=== PATIENT | male | born 1970 | race Caucasian/White ===

== ENCOUNTER 2017-05-12 08:14 | Emergency (ER) | payer OTHER ==
[2017-05-12 08:37] VITALS: BP 143/93; PULSE 78; TEMP 98.4; BMI 32.8
[2017-05-12] MEDS ORDERED: SODIUM CHLORIDE 1,000 ML IV STA (08:48)
--- NOTE | 2017-05-12 09:00 | PDOC ---
History of Present Illness - General Chief Complaint: Pain, Acute Stated Complaint: ABD PAIN Time Seen by Provider: 05/12/17 08:21 History Source: Patient Exam Limitations: No Limitations - History of Present Illness Initial Comments: 05/12/17 08:53 47-year-old male with history of appendectomy presents to the emergency department with abdominal discomfort. Patient does suffer from a history of constipation but noted last 5 days that he's been feeling bloated and with intermittent abdominal discomfort. States that physical pressure-like pain but is not sharp. He is able to tolerate by mouth and eating comfortably. Denies fevers, chills, nausea, vomiting, diarrhea. States his stools have been progressively harder. Because of discomfort, came to the ED for further evaluation. Last bowel movement was today. Past History - Past Medical History Allergies/Adverse Reactions: Allergies Allergy/AdvReac Type Severity Reaction Status Date / Time No Known Allergies Allergy Verified 05/12/17 08:15 Home Medications: Ambulatory Orders Zolpidem Tartrate [Ambien -] 10 mg PO HS #5 tablet 03/21/14 Docusate Sodium [Colace -] 100 mg PO TID #21 capsule 05/12/17 Polyethylene Glycol 3350 [Miralax (For Bowel Prep) -] 17 gm PO DAILY #1 bottle 05/12/17 COPD: No Other medical history: DENIES - Surgical History Appendectomy: Yes - Suicide/Smoking/Psychosocial Hx Smoking Status: No Smoking History: Never smoked Number of Cigarettes Smoked Daily: 0 Hx Alcohol Use: No Drug/Substance Use Hx: No Substance Use Type: Alcohol Review of Systems - Review of Systems Able to Perform ROS?: Yes Comments:: 05/12/17 08:54 GENERAL/CONSTITUTIONAL: No fever, weakness. HEAD, EYES, EARS, NOSE AND THROAT: No change in vision. No ear pain or discharge. No sore throat. CARDIOVASCULAR: No chest pain or shortness of breath. RESPIRATORY: No cough, wheezing, or hemoptysis. GASTROINTESTINAL: +abdominal discomfort. +hard stools. No nausea, vomiting, diarrhea, or decreased PO intolerance. GENITOURINARY: No dysuria, frequency, or change in urination. MUSCULOSKELETAL: No joint or muscle swelling or pain. No neck or back pain. SKIN: No rash NEUROLOGIC: No headache, vertigo, loss of consciousness, or change in strength/ sensation. ENDOCRINE: No increased thirst. No abnormal weight change. HEMATOLOGIC/LYMPHATIC: No anemia, easy bleeding, or history of blood clots. ALLERGIC/IMMUNOLOGIC: No hives or skin allergy. *Physical Exam - Vital Signs Last Vital Signs Temp Pulse Resp BP Pulse Ox 98.4 F 78 18 143/93 100 05/12/17 08:14 05/12/17 08:14 05/12/17 08:14 05/12/17 08:14 05/12/17 08:14 - Physical Exam Comments: 05/12/17 08:56 GENERAL: Awake, alert, and fully oriented, in no acute distress. HEAD: No signs of trauma EYES: PERRLA, EOMI, sclera anicteric, conjunctiva clear ENT: Auricles normal inspection ABDOMEN: Soft, nontender, normoactive bowel sounds. No guarding, no rebound. No masses EXTREMITIES: Normal range of motion, no edema. No clubbing or cyanosis. No cords, erythema, or tenderness NEUROLOGICAL: Cranial nerves II through XII grossly intact. Normal speech, normal gait SKIN: Warm, Dry, normal turgor, no rashes or lesions noted. ED Treatment Course - LABORATORY CBC & Chemistry Diagram: 05/12/17 08:50 05/12/17 08:58 - RADIOLOGY Radiology Studies Ordered: Category Date Time Status ABDOMEN FLAT & UPRIGHT [RAD] Stat Radiology 05/12/17 08:48 Ordered Medical Decision Making - Medical Decision Making 05/12/17 08:57 Vital Signs Temp Pulse Resp BP Pulse Ox 98.4 F 78 18 143/93 100 05/12/17 08:14 05/12/17 08:14 05/12/17 08:14 05/12/17 08:14 05/12/17 08:14 I suspect the patient likely has constipation. However, we'll obtain blood work , urinalysis and abdominal x-ray. At this time, I have less suspicion for bowel obstruction. Reassess. 05/12/17 10:43 CBC, BMP 05/12/17 08:50 05/12/17 08:58 CMP Sodium 134 mmol/L (136-145) L 05/12/17 08:58 Potassium 4.4 mmol/L (3.5-5.1) 05/12/17 08:58 Chloride 102 mmol/L (98-107) 05/12/17 08:58 Carbon Dioxide 25 mmol/L (22-28) 05/12/17 08:58 Anion Gap 7 (8-16) L 05/12/17 08:58 BUN 20 mg/dl (7-18) H 05/12/17 08:58 Creatinine 1.0 mg/dl (0.6-1.3) 05/12/17 08:58 Creat Clearance w eGFR > 60 (>60) 05/12/17 08:58 Random Glucose 110 mg/dl (74-106) H 05/12/17 08:58 Calcium 9.8 mg/dl (8.4-10.2) 05/12/17 08:58 Magnesium 1.8 mg/dL (1.8-2.4) 05/12/17 08:58 Total Bilirubin 0.9 mg/dl (0.2-1.0) D 05/12/17 08:58 AST 41 U/L (10-42) D 05/12/17 08:58 ALT 66 U/L (10-40) H D 05/12/17 08:58 Alkaline Phosphatase 73 U/L (32-92) D 05/12/17 08:58 Total Protein 7.7 g/dl (6.4-8.3) 05/12/17 08:58 Albumin 4.2 g/dl (3.5-5.0) 05/12/17 08:58 Lipase 53 U/L (22-51) H 05/12/17 08:58 Urine Test Results Urine Color Yellow 05/12/17 09:14 Urine Appearance Clear 05/12/17 09:14 Urine pH 6.0 (4.5-8) D 05/12/17 09:14 Ur Specific [place] 1.025 (1.005-1.025) 05/12/17 09:14 Urine Protein Negative (NEGATIVE) 05/12/17 09:14 Urine Glucose (UA) Negative (NEGATIVE) 05/12/17 09:14 Urine Ketones Negative (NEGATIVE) 05/12/17 09:14 Urine Blood Negative (NEGATIVE) 05/12/17 09:14 Urine Nitrite Negative (NEGATIVE) 05/12/17 09:14 Urine Bilirubin Negative (NEGATIVE) 05/12/17 09:14 Ur Leukocyte Esterase Negative (NEGATIVE) 05/12/17 09:14 Abdominal radiograph demonstrates no acute findings. The patient does report feeling better after the medications. The patient is able to tolerate PO and go to the gym. 4 days ago, he took a dose of milk of magnesium and reported relief. I suspect that he may be having constipation. Will prescribe miralax and colace and advise patient to follow up with PMD I discussed the physical exam findings, ancillary test results and final diagnoses with the patient. I answered all of the patient's questions. The patient was satisfied with the care received and felt comfortable with the discharge plan and treatment plan. The patient will call their primary care physician within 24 hours to arrange follow-up and will return to the Emergency Department with any new, persistant or worsening symptoms. *DC/Admit/Observation/Transfer Diagnosis at time of Disposition: Abdominal pain Qualifiers: Abdominal location: unspecified location Qualified Code(s): R10.9 - Unspecified abdominal pain - Discharge Dispostion Disposition: HOME Condition at time of disposition: Stable Admit: No - Prescriptions Prescriptions: Docusate Sodium [Colace -] 100 mg PO TID #21 capsule Polyethylene Glycol 3350 [Miralax (For Bowel Prep) -] 17 gm PO DAILY #1 bottle - Referrals - Patient Instructions Printed Discharge Instructions: DI for Constipation, Increased Dietary Fiber May Improve Constipation Conditions With Pelvic Buzz Additional Instructions: Drink plenty of water. Take the colace and miralax as prescribed. Follow up with your primary care physician. - Post Discharge Activity
[2017-05-12 09:25] LABS: URINE APPEARANCE Clear; URINE BILIRUBIN Negative (NEGATIVE); URINE BLOOD Negative (NEGATIVE); URINE GLUCOSE (UA) Negative (NEGATIVE); URINE KETONE Negative (NEGATIVE); URINE LEUK ESTERASE Negative (NEGATIVE); URINE NITRITE Negative (NEGATIVE); URINE PROTEIN Negative (NEGATIVE); URINE UROBILINOGEN 0.2 (0.2-1.0)
[2017-05-12] MEDS ORDERED: MAG HYDROX/AL HYDROX/SIMETH 30 ML UNIT-DOSE CUP PO ONE (09:36)
[2017-05-12] MEDS ORDERED: FAMOTIDINE 20 MG/50 ML IVPB 20 MG/50 ML MG IVPB ONE ×2 (09:36→09:38)
[2017-05-12] MEDS ORDERED: POLYETHYLENE GLYCOL 3350 119 GM BTL PO ONE (09:37)
[2017-05-12] MEDS ORDERED: MAG HYDROX/AL HYDROX/SIMETH 30 ML UNIT-DOSE CUP ONE (09:38)
[2017-05-12 09:46] LABS: URINE COLOR YELLOW
[2017-05-12 09:53] LABS: BASOPHIL 0.6 % (0-2.0); EOSINOPHIL 1.9 % (0-4.5); MCH 28.1 pg (25.7-33.7); MCHC 33.2 g/dl (32.0-35.9); MEAN CELL VOLUME 84.7 fl (80-96); MEAN PLT VOLUME 9.8 fl (7.5-11.1); NEUTROPHILS 63.7 % (42.8-82.8); PLATELET COUNT 292 K/MM3 (134-434); WHITE BLOOD COUNT 7.6 K/mm3 (4.0-10.8)
[2017-05-12 10:11] LABS: ALBUMIN 4.2 g/dl (3.5-5.0); ALK PHOS 73 U/L (32-92); ANION GAP 7 (8-16); BILIRUBIN,TOTAL 0.9 mg/dl (0.2-1.0); CALCIUM 9.8 mg/dl (8.4-10.2); CO2 25 mmol/L (22-28); GLUCOSE,RANDOM 110 mg/dl (74-106); MAGNESIUM 1.8 mg/dL (1.8-2.4); SGOT/AST 41 U/L (10-42); SGPT/ALT 66 U/L (10-40); TOT PROT 7.7 g/dl (6.4-8.3)
== END 2017-05-12 10:49 | disposition home or self-care (01) ==
LOC: FER 08:14
PROC: 3E033GC Introduction of Other Therapeutic Substance into Peripheral Vein, Percutaneous Approach (ICD-10-PCS; principal; 2017-05-12)
DX: R10.9 Unspecified abdominal pain (principal); Z90.89 Acquired absence of other organs
CPT/HCPCS: 36415; 74020-TC; 80053; 81003; 83690; 83735; 85025; 99283-25

== ENCOUNTER 2017-08-16 13:30 | Emergency (ER) | payer SELFPAY ==
[2017-08-16 13:51] VITALS: BMI 34.4
[2017-08-16] MEDS ORDERED: KETOROLAC TROMETHAMINE 30 MG/1 ML VIAL IVPUSH ONE (14:31)
[2017-08-16] MEDS ORDERED: SODIUM CHLORIDE 1,000 ML IV STA (14:31)
[2017-08-16] MEDS ORDERED: KETOROLAC TROMETHAMINE 30 MG/1 ML VIAL ONE (14:36)
[2017-08-16 14:57] LABS: BASO % 1.1 % (0-2.0); EOS % 3.2 % (0-4.5); HEMATOCRIT 44.1 % (35.4-49); HEMOGLOBIN 15.4 GM/dl (11.7-16.9); LYMPH % 18.2 % (8-40); MCH 29.3 pg (25.7-33.7); MCHC 34.8 g/dl (32.0-35.9); MEAN CELL VOLUME 84.1 fl (80-96); MEAN PLT VOLUME 8.4 fl (7.5-11.1); MONO % 9.1 % (3.8-10.2); NEUT % 68.4 % (42.8-82.8); PLATELET COUNT 229 K/MM3 (134-434); RBC 5.25 M/mm3 (4.00-5.60); RDW 13.2 % (11.9-15.9); WHITE BLOOD COUNT 6.8 K/mm3 (4.0-10.8)
[2017-08-16 15:09] LABS: ALBUMIN 4.1 g/dl (3.5-5.0); ALK PHOS 78 U/L (32-92); ANION GAP 8 (8-16); BILIRUBIN,TOTAL 0.7 mg/dl (0.2-1.0); BLOOD UREA NITROGEN 14 mg/dl (7-18); CALCIUM 8.6 mg/dl (8.4-10.2); CHLORIDE 99 mmol/L (98-107); CO2 23 mmol/L (22-28); GLUCOSE,RANDOM 113 mg/dl (74-106); POTASSIUM 3.9 mmol/L (3.5-5.1); SGOT/AST 48 U/L (10-42); SGPT/ALT 84 U/L (10-40); SODIUM 130 mmol/L (136-145)
--- NOTE | 2017-08-16 15:21 | PDOC ---
History of Present Illness <Neida Wynn - Last Filed: 08/16/17 15:27> - General History Source: Patient Exam Limitations: No Limitations - History of Present Illness Initial Comments: 08/16/17 16:00 CHIEF COMPLAINT: Fever and cough for 2 days HISTORY OF PRESENT ILLNESS: Patient is a 47-year-old man with a history of prior appendectomy. He had been doing well until 3 days ago when he developed weakness, cough, and fever. He also has a sore throat. The cough is productive of white phlegm. He has an intermittent headache, but that is better today. Overall he is feeling severe aches and weakness today so he decided to come to the hospital. There is no nausea, vomiting or diarrhea. He continues to have fever and chills. REVIEW OF SYSTEMS: GENERAL/CONSTITUTIONAL: Positive fever and chills. Positive weakness. No weight change. HEAD, EYES, EARS, NOSE AND THROAT: No change in vision. No ear pain. Positive sore throat. No difficulty swallowing. CARDIOVASCULAR: Positive cough, no chest pain. No shortness of breath. RESPIRATORY: Positive cough, no wheezing or hemoptysis. Occasional white sputum. Mostly nonproductive. GASTROINTESTINAL: No nausea, vomiting, diarrhea or constipation. No rectal bleeding. GENITOURINARY: No dysuria, frequency, or change in urination. MUSCULOSKELETAL: As of diffuse joint and muscle aches and pains. SKIN AND BREASTS: No rash or easy bruising. NEUROLOGIC: Positive headache yesterday, now resolved. No vertigo or loss of consciousness. No focal numbness or weakness. PSYCHIATRIC: No depression or anxiety. ENDOCRINE: No increased thirst. No abnormal weight change. HEMATOLOGIC/LYMPHATIC: No anemia, easy bleeding, or history of blood clots. ALLERGIC/IMMUNOLOGIC: No hives or skin allergy. No latex allergy. <Elan Davis - Last Filed: 08/16/17 16:08> - General Chief Complaint: Cold Symptoms Stated Complaint: COUGH AND FEVER Time Seen by Provider: 08/16/17 14:19 Past History <Neida Wynn - Last Filed: 08/16/17 15:27> - Past Medical History COPD: No - Surgical History Appendectomy: Yes - Suicide/Smoking/Psychosocial Hx Smoking Status: No Smoking History: Never smoked Have you smoked in the past 12 months: No Number of Cigarettes Smoked Daily: 0 Information on smoking cessation initiated: No Hx Alcohol Use: No Drug/Substance Use Hx: No Substance Use Type: Alcohol <Elan Davis - Last Filed: 08/16/17 16:08> - Past Medical History Allergies/Adverse Reactions: Allergies Allergy/AdvReac Type Severity Reaction Status Date / Time No Known Allergies Allergy Verified 08/16/17 13:43 Home Medications: Ambulatory Orders Naproxen [Naprosyn -] 375 mg PO BID PRN #14 tablet 08/16/17 Oseltamivir Phosphate [Tamiflu] 75 mg PO BID 5 Days #10 capsule 08/16/17 *Physical Exam - Vital Signs Last Vital Signs Temp Pulse Resp BP Pulse Ox 102.8 F H 106 H 18 150/80 99 08/16/17 13:46 08/16/17 13:46 08/16/17 13:46 08/16/17 13:46 08/16/17 13:46 <Neida Wynn - Last Filed: 08/16/17 15:27> - Vital Signs Last Vital Signs Temp Pulse Resp BP Pulse Ox 102.8 F H 106 H 18 150/80 99 08/16/17 13:46 08/16/17 13:46 08/16/17 13:46 08/16/17 13:46 08/16/17 13:46 - Physical Exam Comments: 08/16/17 16:02 GENERAL: The patient is awake, alert, and fully oriented, in no acute distress. He has intermittent cough, nonproductive. HEAD: Normal with no signs of trauma. EYES: Pupils equal, round and reactive to light, extraocular movements intact, sclera anicteric, conjunctiva clear. ENT: He is normal. Nasal membranes are erythematous. Throat with slight erythema but no exudates. No trismus. Uvula normal. NECK: Normal range of motion, supple without lymphadenopathy, JVD, or masses. No meningismus. LUNGS: Breath sounds equal, clear to auscultation bilaterally. No wheezes, and no crackles. Clear throughout, anterior and posterior. HEART: Regular rate and rhythm, normal S1 and S2 without murmur, rub or gallop. ABDOMEN: Soft, nontender, normoactive bowel sounds. No guarding, no rebound. No masses. EXTREMITIES: Normal range of motion, no edema. No clubbing or cyanosis. No cords, erythema, or tenderness. NEUROLOGICAL: Cranial nerves II through XII grossly intact. Normal speech, normal gait. PSYCH: Normal mood, normal affect. SKIN: Warm, Dry, normal turgor, no rashes or lesions noted. <Elan Davis - Last Filed: 08/16/17 16:08> ED Treatment Course - LABORATORY CBC & Chemistry Diagram: 08/16/17 14:45 08/16/17 14:45 - ADDITIONAL ORDERS Additional order review: Laboratory Results 08/16/17 14:45 Sodium 130 L Potassium 3.9 Chloride 99 Carbon Dioxide 23 Anion Gap 8 BUN 14 D Creatinine 1.0 Creat Clearance w eGFR > 60 Random Glucose 113 H Calcium 8.6 Total Bilirubin 0.7 D AST 48 H ALT 84 H D Alkaline Phosphatase 78 Total Protein 8.0 Albumin 4.1 08/16/17 14:45 RBC 5.25 MCV 84.1 MCHC 34.8 RDW 13.2 MPV 8.4 D Neutrophils % 68.4 Lymphocytes % 18.2 D Monocytes % 9.1 Eosinophils % 3.2 Basophils % 1.1 - RADIOLOGY Radiograph Interpretation: 08/16/17 15:27 Chest X-ray Imaging reveals a weak inspiratory effort with clear lungs, normal mediastinum and sharp angles. The bones and soft tissues are intact. Impression: No acute pathology Reported by: Kristopher Horan MD 08/16/17 1501 - Medications Given in the ED: ED Medications Discontinued Medications Generic Name Dose Route Start Last Admin Trade Name Freq PRN Reason Stop Dose Admin Ketorolac Tromethamine 30 mg 08/16/17 14:31 08/16/17 14:47 Toradol Injection - IVPUSH 08/16/17 14:32 30 mg ONCE ONE Administration <Neida Wynn - Last Filed: 08/16/17 15:27> - LABORATORY CBC & Chemistry Diagram: 08/16/17 14:45 08/16/17 14:45 - RADIOLOGY Radiology Studies Ordered: Category Date Time Status CHEST PA & LAT [RAD] Stat Radiology 08/16/17 14:30 Ordered <Elan Davis - Last Filed: 08/16/17 16:08> Medical Decision Making - Medical Decision Making 08/16/17 16:03 Patient is a 47-year-old man who presents with flulike symptoms for 3 days. His examination is notable for frequent coughing, and inflammation of the nasopharynx and mild inflammation of the oropharynx. Lungs are clear. Chest x-ray shows no acute infiltrates. Laboratory studies reviewed: CBC is normal. Hemoglobin is normal. BUN and creatinine is normal. Transaminases are mildly elevated, but only mildly. Other LFTs are normal. After hydration and antipyretics, patient is feeling well. He will be started on Tamiflu given his BMI of 35. Laboratory Results - last 24 hr 08/16/17 08/16/17 14:45 14:45 WBC 6.8 RBC 5.25 Hgb 15.4 Hct 44.1 MCV 84.1 MCH 29.3 MCHC 34.8 RDW 13.2 Plt Count 229 D MPV 8.4 D Neutrophils % 68.4 Lymphocytes % 18.2 D Monocytes % 9.1 Eosinophils % 3.2 Basophils % 1.1 Sodium 130 L Potassium 3.9 Chloride 99 Carbon Dioxide 23 Anion Gap 8 BUN 14 D Creatinine 1.0 Creat Clearance w eGFR > 60 Random Glucose 113 H Calcium 8.6 Total Bilirubin 0.7 D AST 48 H ALT 84 H D Alkaline Phosphatase 78 Total Protein 8.0 Albumin 4.1 08/16/17 16:04 Flu swab could not be performed due to a nationwide shortage of reagent. Laboratory does not have flu swab available. <Elan Davis - Last Filed: 08/16/17 16:08> *DC/Admit/Observation/Transfer <Neida Wynn - Last Filed: 08/16/17 15:27> - Discharge Dispostion Admit: No <Elan Davis - Last Filed: 08/16/17 16:08> Diagnosis at time of Disposition: Influenza-like illness - Discharge Dispostion Disposition: HOME Condition at time of disposition: Stable - Prescriptions Prescriptions: Naproxen [Naprosyn -] 375 mg PO BID PRN #14 tablet PRN Reason: fever and pain Oseltamivir Phosphate [Tamiflu] 75 mg PO BID 5 Days #10 capsule - Patient Instructions Printed Discharge Instructions: DI for Viral Upper Respiratory Infection -- Adult Additional Instructions: Today you were evaluated for flulike symptoms. The chest x-ray is clear, showing that you do not have any pneumonia. You are advised to take Tamiflu twice a day for 5 days. Drink plenty of fluids to maintain good hydration. Take Naprosyn twice a day as needed for pain and fever. Rest at home until your fever is resolved. Follow-up with your primary care physician. Return to the emergency department for any severe or progressive symptoms. - Post Discharge Activity Forms/Work/School Notes: Back to Work
[2017-08-16 16:01] VITALS: BP 136/89; PULSE 88; TEMP 99.9
== END 2017-08-16 16:21 | disposition home or self-care (01) ==
LOC: FER 13:30
PROC: 3E0333Z Introduction of Anti-inflammatory into Peripheral Vein, Percutaneous Approach (ICD-10-PCS; principal; 2017-08-16)
PROC: 3E0337Z Introduction of Electrolytic and Water Balance Substance into Peripheral Vein, Percutaneous Approach (ICD-10-PCS; 2017-08-16)
DX: J11.1 Influenza due to unidentified influenza virus with other respiratory manifestations (principal)
CPT/HCPCS: 36415; 71046-TC-FY; 80053; 85025; 99282-25